=== PATIENT | male | born 1985 | race African-American/Black ===

== ENCOUNTER 2016-11-22 23:50 | Emergency (ER) | payer OTHER ==
[~2016-11-22] VITALS: Ht 180.3 cm; Wt 111.4 kg
[2016-11-23 00:06] VITALS: TEMP 37; Ht 180.3 cm; Wt 111.4 kg
[2016-11-23] MEDS ORDERED: PROPARACAINE HCL 0.5% OP SOLN 15 ML BTL ONE (00:34)
[2016-11-23] MEDS ORDERED: CIPROFLOXACIN HCL 0.3% OP SOLN 2.5 ML BTL OP STA (00:39)
[2016-11-23] MEDS ORDERED: CIPROFLOXACIN HCL 0.3% OP SOLN 2.5 ML BTL OP ONE (00:45)
[2016-11-23 01:08] VITALS: BP 137/85; PULSE 80; O2SAT 99
--- NOTE | 2016-11-23 01:17 | EMERGENCY ROOM VISIT NOTE ---
ED Visit Note First contact with patient: 00:12 CHIEF COMPLAINT: Red, irritated eye HISTORY OF PRESENT ILLNESS: This 31 yo presents to the emergency department with family complaining of redness in both eyes since yesterday they're itchy red and have drainage who is concerned he has pinkeye. Mild constant pain, itchy in nature, which is rated as 5/10. There is clear discharge from the eyes and the lids are crusted in the morning. No difficulty with vision. The patient not contacts. There is no known trauma to the eye. The patient has had any other upper respiratory symptoms. The patient does not have a foreign body sensation. No headache, rash, nausea or vomiting. Patient states he knows he needs to see an supervisor wound for glasses. He has been procrastinating. REVIEW OF SYSTEMS: A 6 system review of systems was completed with positives and pertinent negatives in the HPI. ALLERGIES: None MEDICATIONS: None PMH: None SOCIAL HISTORY: No drug use PHYSICAL EXAM: Vital Signs: Reviewed Nurse's notes, Temperature afebrile. GENERAL: Pleasant male, in no acute distress, well-developed, well-nurished. SKIN: Warm, dry. No cyanosis. No petechia. EYES: Both pupils are equal round and reactive to light and accomadation, EOMs intact. There is clear discharge in both eyes and moderate injection. There is no foreign body of the eyelid with lid eversion. Fundoscopic exam reveals no hemorrages, papiledema, or other abnormalities. No foreign body on the cornea, no hyphema. No uptake of flourescein visible with UV light. No corneal abrasion and no corneal ulcer. Visual Accuity is reviewed from nursing EMERGENCY DEPARTMENT COURSE: I examined the patient. A slit lamp exam was performed and is as described above. Two drops of Ciloxin were put in the both eyes and the patient was instructed as noted below. Patient was informed this could be viral or allergic in etiology as symptoms are in both eyes and there is itchiness and drainage. He is strongly encouraged to follow-up with ophthalmology if symptoms persist or here in the ER sooner for severe pain, vision changes, worsening signs or symptoms or as needed. The patient was discharged home in good condition. Differential diagnosis includes conjunctivitis, corneal abrasion, iritis, foreign body, allergic reaction and other etiologies were considered. DIAGNOSIS: Acute conjunctivitis DISCHARGE INSTRUCTIONS: Ciloxan 2 drops into affected eye every 2 hrs x 2 days then 4 times a day for 5 days for a total of 7 days. No contacts for 7 days. Do not rub your eyes, and wash hands frequently. Cool compress for discomfort. Avoid irritants like smoke, wind, and sun. Throw out eye cosmetics. Acetaminophen(Tylenol) may be used for fever or pain. Use 1000mg every six hours as needed. Avoid using more than 3000mg in a 24 hour period. AND/OR Ibuprofen(Motrin, Advil) may be used for fever or pain. Use 600mg every six hours as needed. Take with food. Avoid using more than 2400mg in a 24 hour period. Do not use 2400mg per day for more than three consecutive days without physician direction. Prolonged inappropriate use can lead to stomach upset or ulcers. Follow up with family doctor or eye doctor if symptoms do not resolve in 7 days. Return sooner for any change in vision, eye pain, worsening signs or symptoms or as needed. Current/Historical Medications No Active Prescriptions or Reported Meds Allergies Coded Allergies: No Known Allergies (Unverified , 11/23/16) Vital Signs Date Time Temp Pulse Resp B/P Pulse Ox O2 Delivery O2 Flow Rate FiO2 11/23/16 00:06 37.0 81 16 160/100 96 Room Air Medications Administered Medications (Trade) Dose Ordered Sig/Abdoul Route Start Time Stop Time Status Last Admin Dose Admin Ciprofloxacin HCl (Ciprofloxacin 0.3% Op Soln) 2 drops NOW STAT OP 11/23/16 00:39 11/23/16 00:41 DC 11/23/16 01:07 2 DROPS Ciprofloxacin HCl (Ciprofloxacin 0.3% Op Soln) 2 drops NOW ONCE OP 11/23/16 00:45 11/23/16 00:46 DC 11/23/16 01:07 2 DROPS Departure Information Impression Primary Impression: Conjunctivitis Dispostion Home / Self-Care Condition GOOD Prescriptions No Active Prescriptions or Reported Meds Referrals Veto [facility] D.O. Forms WORK / SCHOOL INSTRUCTIONS, HOME CARE DOCUMENTATION FORM, IMPORTANT VISIT INFORMATION Patient Instructions My [facility], ED Conjunctivitis Nonspecific Additional Instructions Ciloxan 2 drops into affected eye every 2 hrs while awake x 2 days then every 4 hrs for 5 days for a total of 7 days. No contacts for 10 days. Do not rub your eyes, and wash hands frequently. Cool compress for discomfort. Avoid irritants like smoke, wind, and sun. Throw out eye cosmetics. Follow up with family doctor or eye doctor if symptoms do not start to improve in 48 hrs or if not resolved in 7 days. Return sooner for any change in vision.
[2016-11-23] MEDS ORDERED: CEPH500C2 PO (17:36)
[2016-11-23] MEDS ORDERED: CIPR0.3S OPB (17:43)
== END 2016-11-23 01:17 | disposition home or self-care (01) ==
LOC: C.EDB 23:53 → C.EDC 11-23 01:17
DX: H10.33 Unspecified acute conjunctivitis, bilateral (principal)

== ENCOUNTER 2016-11-23 16:27 | Emergency (ER) | payer OTHER ==
[~2016-11-23] VITALS: Ht 180.3 cm; Wt 109.2 kg
[2016-11-23 16:42] VITALS: BP 132/92; PULSE 87; TEMP 36.8; O2SAT 97; Ht 180.3 cm; Wt 109.2 kg
[2016-11-23] MEDS ORDERED: CEPH500C2 PO (17:36)
[2016-11-23] MEDS ORDERED: CIPR0.3S OPB (17:43)
--- NOTE | 2016-11-24 20:32 | EMERGENCY ROOM VISIT NOTE ---
ED Visit Note First contact with patient: 17:17 Chief Complaint: Spider bite. History of Present Illness: Mr. Syed is a 31-year-old black male who ambulates into the ED complaining of a possible spider bite to the face with swelling of the right cheek and left chin. Historically patient reports she was in the emergency department yesterday and was diagnosed with bilateral conjunctivitis and placed on Ciloxan drops. He feels like his eyes or feeling slightly better since using the drops. Patient reports he was taken nap approximately 2 hours before he arrived in the emergency department and felt like something was crawling on his face. When he woke up he noted swelling and mild redness over the anterior aspect of the right cheek and the lateral aspect of the right chin. He has no associated symptoms with his swelling and redness. He has not taken any medications for his symptoms prior to arrival at the hospital. He denies any associated fevers, chills, sweats, headache, dizziness, lightheadedness, visual changes, hearing changes, nasal drainage, dental pain, sore throat, voice changes, sensations of throat swelling, cough, wheezing, shortness of breath, abdominal pain, nausea/vomiting. Review of Systems: As noted above in history of present illness. 8 body systems were reviewed and found to be negative as noted above. Past Medical History: As previously noted. Current Medications: As previously noted. Allergies to Medications: Patient denies. Social History: Patient is currently employed; he feels safe in his home environment; he admits to tobacco use and denies alcohol use. Physical Examination: Vital Signs: Date Time Temp Pulse Resp B/P Pulse Ox O2 Delivery O2 Flow Rate FiO2 11/23/16 16:42 36.8 87 18 132/92 97 Room Air GENERAL: 31-year-old male in no acute distress, nontoxic-appearing, afebrile and hemodynamically stable. NEUROLOGICAL: Awake, alert and oriented to person, place and time. Answering questions appropriately and following commands. Normal gait. Good hand eye coordination. No focal motor or sensory deficits. SKIN: Warm, dry and pink. Face: Just right lateral to the middle nose inferior to the orbit patient has an area of mild erythema and edema and over the lateral aspect of the chin extending distally under the mandible there is also another area of erythema and edema. Chest: Lastly just lateral to the right sternoclavicular joint patient has an additional area of erythema and edema. Skin does not appear cellulitic nor no palpable abscesses. Although the skin is erythematous does not feel excessively warm to the touch when compared to other areas of the face and chest. There is no lymphangitis. HEENT: Atraumatic and normocephalic. Face: No bony tenderness, deformity or crepitus. PERRLA. Extraocular eye movements are intact. Sclera injected and conjunctiva pink without drainage. No drainage from naris. Oral cavity moist and pink. Airway patent. Uvula midline and no abscesses are seen. No tenderness over his dentition. Pharynx is nonerythematous or edematous. Speech normal. No laryngeal tenderness. No lymphadenopathy. Trachea midline. No jugular venous distention. No auditory or auscultatory stridor. BACK: No tenderness over the bony spine. THORAX: Lungs sounds are clear to auscultation and equal bilaterally with symmetrical chest wall. No wheezing, rales or rhonchi. No crepitus, tenderness , subcutaneous air or deformities noted. ABDOMEN: Flat, soft and nontender. Positive bowel sounds in all quadrants. No guarding, rigidity or organomegaly. EXTREMITIES: Moves all extremities well on command and with purpose. All distal neurovascular statuses are intact and equal bilaterally. ED Course: Patient is assessed as noted above. Patient's case was reviewed with Dr. May; we agreed on diagnostic approach, disposition and plan. Patient was educated about tonight's findings and instructed on history and the plan; he verbalizes understanding and agreement with this plan. Clinical Impression: Facial swelling and erythema. Questionable insect bite. Decision-Making: Initially my differential diagnosis I considered cellulitis, insect bite, facial trauma and other causes. Disposition: Patient discharged home in stable condition; prior to departure he was reassessed and subjectively reported he remained pain free. Plan: Patient was encouraged use ibuprofen or acetaminophen as needed for pain. Patient was prescribed Keflex 500 mg 3 times a day for 7 days. Patient was encouraged use ice over areas of swelling. Patient was encouraged to follow-up with PCP for recheck in 36-48 hours. Patient was encouraged return the ED for worsening/uncontrolled swelling, worsening redness, fevers, visual changes, hearing changes, difficulty swallowing or any new/concerning symptoms.
== END 2016-11-23 17:46 | disposition home or self-care (01) ==
LOC: C.EDB 16:29 → C.EDD 17:46
DX: R22.0 Localized swelling, mass and lump, head (principal); L53.9 Erythematous condition, unspecified; Z72.0 Tobacco use

== ENCOUNTER 2017-04-27 21:16 | Emergency (ER) | payer SELFPAY ==
[~2017-04-27] VITALS: Ht 180.3 cm; Wt 108.6 kg
[~2017-04-27 21:16] MED LIST: CIPR0.3S OPB
[2017-04-27 21:19] VITALS: BP 135/71; PULSE 86; TEMP 37; O2SAT 96; Ht 180.3 cm; Wt 108.6 kg
[2017-04-27] MEDS ORDERED: PSEUDOEPHEDRINE HCL 30 MG TAB PO STA (22:01)
[2017-04-27] MEDS ORDERED: AMOX875T PO (22:08)
[2017-04-27] MEDS ORDERED: PRED50TA PO (22:08)
[2017-04-27] MEDS ORDERED: AMOXICIL/CLAVU 875MG HOME PACK PO ONE (22:15)
--- NOTE | 2017-04-28 03:18 | EMERGENCY ROOM VISIT NOTE ---
History First contact with patient: 21:54 Chief Complaint: SINUS CONGESTION/PRESSURE Stated Complaint: SINUS INFECTION Nursing Triage Summary: Patient c/o sinus congestion and headache x1 week. + cough, small amount of green mucus PER PATIENT REPORT. History of Present Illness The patient is a 31 year old male who presents to the Emergency Room with complaints of sinus pain and congestion for the past week with sinus headache and cough. Patient denies neck stiffness, sore throat, chest pain, dyspnea, abdominal pain, vomiting, diarrhea. No recent sinus infections. Patient is tolerated by mouth fluids. No documented fever. Review of Systems See HPI for pertinent positives & negatives. A total of 10 systems reviewed and were otherwise negative. Past Medical/Surgical History none Social History Smoking Status: Current Every Day Smoker Drug Use: none Marital Status: Housing Status: lives with family Occupation Status: employed Current/Historical Medications Scheduled Amoxicillin & Pot Clavulanate (Augmentin 875-125 mg), 1 TAB PO BID Prednisone (Prednisone), 50 MG PO DAILY Allergies Coded Allergies: No Known Allergies (Unverified , 11/23/16) Physical Exam Vital Signs Date Time Temp Pulse Resp B/P (MAP) Pulse Ox O2 Delivery O2 Flow Rate FiO2 04/27/17 21:28 97 Room Air 04/27/17 21:19 37.0 86 18 135/71 96 Room Air Pain Rating (0-10): 4.0 Physical Exam VITALS: Vitals are noted on the nurse's note and reviewed by myself. Vital signs stable. GENERAL: Pleasant female, in no acute distress, nondiaphoretic, well-developed well-nourished. SKIN: The skin was without rashes, erythema, edema, or bruising. There is no tenting of the skin. Capillary reflex less than 2 seconds. HEAD: Normocephalic atraumatic. EARS: External auditory canals clear, tympanic membranes pearly rios without erythema or effusion bilaterally. EYES: Pupils equal round and reactive to light and accommodation. Conjunctivae without injection, sclerae without icterus. Extraocular movements intact. NOSE: Patent, turbinates without inflammation or discharge. Bilateral maxillary sinus tenderness. MOUTH: Mucous membranes moist. Pharynx without erythema or exudate. Uvula midline. Airway patent. Tongue does not deviate. NECK: Supple without nuchal rigidity. No lymphadenopathy. No thyromegaly. Cervical spine is nontender. No JVD. No meningeal signs HEART: Regular rate and rhythm without murmurs gallops or rubs. LUNGS: Clear to auscultation bilaterally without wheezes, rales or rhonchi. No dullness to percussion. No retractions or accessory muscle use. ABDOMEN: Positive bowel sounds x 4. Normal tympanic percussion. Soft, nontender, without masses or organomegaly. Zuluaga sign negative. No guarding or rebound tenderness. MUSCULOSKELETAL: No muscle atrophy, erythema, or edema noted. NEURO: Patient was alert and oriented to person place and time. Normal sensation to light and sharp touch. No focal neurological deficits. Medical Decision & Procedures Medications Administered Medications (Trade) Dose Ordered Sig/Abdoul Route Start Time Stop Time Status Last Admin Dose Admin Amoxicillin/ Clavulanate Potassium (Augmentin 875MG Home Pack) 1 homepack UD ONCE PO 04/27/17 22:15 04/27/17 22:16 DC 04/27/17 22:10 1 HOMEPACK Prednisone (PredniSONE TAB) 60 mg NOW STAT PO 04/27/17 22:01 04/27/17 22:02 DC 04/27/17 22:10 60 MG Pseudoephedrine HCl (Sudafed Tab) 60 mg NOW STAT PO 04/27/17 22:01 04/27/17 22:02 DC 04/27/17 22:10 60 MG ED Course Prior records/ancillary studies reviewed. Triage Nursing notes reviewed. Additional history obtained from family The patient's history was concerning for sinus symptoms with URI Differential diagnosis: Etiologies such as viral syndrome, tonsillitis, sinusitis, meningitis, otitis, pneumonia, influenza, as well as others were entertained. ER treatment provided: Augmentin, prednisone, Sudafed On reassessment the patient felt better. Diagnostics interpreted by me: Deferred This appears to be consistent with acute maxillary sinusitis. Patient was neurovascularly and neurologically intact. No signs of meningitis or mastoiditis. He was well-appearing. He is tolerating fluids. He was advised take medications as directed and to follow-up family care in a few days or here in the ER sooner for high fevers, lethargy, neck stiffness, worsening signs or symptoms or as needed. By the evaluation outlined above emergent etiologies such as otitis, pneumonia, meningitis, urinary tract infection, sepsis, bacteremia, as well as others were deemed relatively unlikely. The pt informed about the findings as listed above. All questions were answered and pleased with the treatment. Return instructions were outlined and the patient was discharged in stable condition. Outpatient prescription management: Augmentin, prednisone Referral: The patient was referred back to their primary care physician for follow-up in 2 to 3 days for a recheck of the current condition. Medical Decision As above Impression Primary Impression: Acute maxillary sinusitis Departure Information Dispostion Home / Self-Care Condition GOOD Prescriptions Prednisone (Prednisone) 50 Mg Tab 50 MG PO DAILY for 4 Days, #4 TAB Prov: Maria Ines Jama .YOLI 04/27/17 Amoxicillin & Pot Clavulanate (Augmentin 875-125 mg) 1 Tab Tab 1 TAB PO BID for 10 Days, #20 TAB Prov: Maria Ines Jama PA-C 04/27/17 Referrals No Doctor, Assigned Jennifer Mcdonough M.D. (PCP) Forms WORK / SCHOOL INSTRUCTIONS, HOME CARE DOCUMENTATION FORM, IMPORTANT VISIT INFORMATION Patient Instructions Sinusitis Acute, [facility] Additional Instructions Augmentin 875mg: Take one pill 2 times daily for 10 days for your infection. All antibiotics can cause diarrhea. If this occurs and you feel worse or it does not resolve in 1-2 days follow up with your doctor or return to the Emergency Department as this could be signs of serious underlying problems. Any medication can cause an allergic reaction, stop the pills immediately and return to the ER for rash, hives, breathing difficulties, or swelling. Prednisone 50mg: Once daily until the prescription is finished. It is best to take this earlier in the day as some patients note occasional difficulty falling asleep when taken in the late evening. Acetaminophen(Tylenol) may be used for fever or pain. Use 1000mg every six hours as needed. Avoid using more than 3000mg in a 24 hour period. (AND/OR) Ibuprofen(Motrin, Advil) may be used for fever or pain. Use 600mg every six hours as needed. Take with food. Avoid using more than 2400mg in a 24 hour period. Do not use 2400mg per day for more than three consecutive days without physician direction. Prolonged inappropriate use can lead to stomach upset or ulcers. Afrin nasal spray: 2-3 sprays to each nostril twice daily as needed for congestion. Do not use for more than 3-4 days because it can lead to worsening rebound congestion. Pseudoephedrine(Sudaphed): 30-60mg every 6 hours as needed for nasal congestion. Do not take this with other stimulant products or supplements. Rest and drink plenty of fluids. Controlling your fever with Tylenol and Ibuprofen as above will make you feel better. Wash your hands after nose blowing, sneezing, or coughing. Most germs are spread through contact, therefore improper hygiene may result in your close contacts and loved ones becoming ill just like you. Continue current medications. Return to the ER for severe headache, neck stiffness, chest pain, difficulty breathing, fevers, vomiting, worsening of your condition, or as needed. Follow up with your primary physician this week for a recheck of your current condition. Problem Qualifiers Primary Impression: Acute maxillary sinusitis Recurrence: non-recurrent Qualified Codes: J01.00 - Acute maxillary sinusitis, unspecified
== END 2017-04-27 22:22 | disposition home or self-care (01) ==
LOC: C.EDB 21:17 → C.EDA 22:22
DX: J01.00 Acute maxillary sinusitis, unspecified (principal); F17.200 Nicotine dependence, unspecified, uncomplicated